=== PATIENT | female | born 1995 | race Caucasian/White ===

== ENCOUNTER → 2016-09-04 | Outpatient (CLI) | payer BC ==
[2016-09-04 14:21] LABS: CH 29.6; HCT 41.6 % (34.0-46.0); HDW 2.23; HGB 13.7 gm/dL (11.4-16.0); MCH 29.5 pg (25.0-35.0); MCHC 32.9 g/dL (31.0-37.0); MCV 89.8 fL (80.0-100.0); Mean Platelet Volume 9.8; RBC 4.63 m/uL (3.80-5.40); RDW 12.1 % (11.5-15.5); WBC 6.4 k/uL (4.0-11.0)
[2016-09-04 14:41] LABS: % Iron Saturation 34.8 % (20-50)
== END | disposition home or self-care (01) ==
LOC: LABWHC1 14:05
PROVIDERS: ATTEND Family Medicine
DX: R53.83 Other fatigue (principal); Z83.49 Family history of other endocrine, nutritional and metabolic diseases
CPT/HCPCS: 36415; 82607; 82728; 82746; 83540; 83550; 84439; 84443; 84481; 85027

== ENCOUNTER → 2024-11-22 | Outpatient (CLI) | payer OTHER ==
--- NOTE | 2024-11-23 11:50 | MR ---
EXAMINATION TYPE: MR brain wo con DATE OF EXAM: 11/22/2024 5:14 PM COMPARISON: None. CLINICAL INDICATION: Female, 29 years old with history of G43.109 MIGRAINE WITH AURA, Migraine headac hes, Tinnitus Left ear, TECHNIQUE: Multiplanar, multiecho imaging on a 3.0 Jenna magnet is performed through the brain. Stud y is performed within 24 hours of arrival to the hospital.Multiplanar, multiecho imaging on a 3.0 Jennifer la magnet is performed through the knee. IV Contrast: mL (None, if empty) FINDINGS: The craniovertebral junction is normal. The pituitary is normal. Diffusion-weighted imaging is performed. No abnormal hyperintensity is present to suggest an acute i ntracranial infarct or acute ischemic change. Signal through the brain is unremarkable. No suspicious hyperintensity on T2 or inversion recovery we ighted sequences to correlate with typical findings of migraine headaches is identified. Ventricles and sulci are appropriate for the patient age. Paranasal sinuses and mastoid air cells are clear. Internal auditory canals as visualized are unremar kable. Cerebellar pontine angles are unremarkable. IMPRESSION: 1. No suspicious changes MRI brain [facility], , 11/23/2024 11:48 AM
== END | disposition home or self-care (01) ==
LOC: RADMRIMAIN 16:17
PROVIDERS: ATTEND Family Medicine
DX: G43.109 Migraine with aura, not intractable, without status migrainosus (principal)
CPT/HCPCS: 70551